=== PATIENT | female | born 1965 | race Asian ===

== ENCOUNTER 2020-05-25 18:50 | Emergency (ER) | payer OTHER ==
[~2020-05-25] VITALS: Ht 167.6 cm; Wt 68.9 kg
[2020-05-25 18:53] VITALS: BP 150/89
[2020-05-25 19:40] LABS: BASOPHILS % (AUTO) 0.1 % (0.0-2.0); EOSINOPHILS # (AUTO) 0.1 K/uL (0-0.4); EOSINOPHILS % (AUTO) 0.8 % (0.0-4.0); HEMATOCRIT 43.8 % (36-48); HEMOGLOBIN 14.6 g/dL (12.0-16.0); LYMPHOCYTES % (AUTO) 7.3 % (20.5-51.1); MEAN CORPUSCULAR HEMOGLOBIN 30 pg (27-31); MEAN CORPUSCULAR HGB CONC 33 g/dL (33-37); MEAN CORPUSCULAR VOLUME 90.6 fL (80-94); MONOCYTES # (AUTO) 0.5 K/uL (0.8-1.0); MONOCYTES % (AUTO) 3.9 % (1.7-9.3); NEUTROPHILS # (AUTO) 12.4 K/uL (1.8-7.7); NEUTROPHILS % (AUTO) 87.9 % (42.2-75.2); PLATELET COUNT (AUTO) 235 K/uL (140-450); RED BLOOD CELL COUNT(AUTO) 4.83 MIL/uL (4.20-5.40); WHITE BLOOD COUNT (AUTO) 14.1 K/uL (4.8-10.8)
[2020-05-25 19:54] LABS: ALBUMIN 4.3 g/dL (3.4-5.0); ANION GAP 17.1 (8-16); CARBON DIOXIDE 26.2 mmol/L (21-32); CREATININE 0.9 mg/dL (0.6-1.3); POTASSIUM 4.3 mmol/L (3.5-5.1); TOTAL BILIRUBIN 0.9 mg/dL (0.0-1.0)
[2020-05-25] MEDS: ONDANSETRON 4 MG ODT PO ONE (20:47)
[2020-05-25] MEDS: HYDROcodone/APAP 5/325 MG 1 TAB TAB PO ONE (20:48)
[2020-05-25 21:19] VITALS: BP 144/96
[2020-05-25 21:39] LABS: APPEARANCE,URINE CLEAR (CLEAR); BILIRUBIN,URINE NEGATIVE (NEGATIVE); BLOOD, URINE NEGATIVE (NEGATIVE); COLOR,URINE YELLOW (YELLOW); LEUKOCYTE ESTERASE ,URINE NEGATIVE (NEGATIVE); NITRITE, URINE NEGATIVE (NEGATIVE); UGLUCOSE NEGATIVE (NEGATIVE)
== END 2020-05-25 22:48 | disposition home or self-care (01) ==
LOC: MED 18:50
DX: R10.11 Right upper quadrant pain (principal)
CPT/HCPCS: 36415; 76705; 80053; 81003; 83690; 85025; 99284; Q0092; Q0162

== ENCOUNTER 2021-12-09 23:45 | Emergency (ER) | payer OTHER ==
[~2021-12-09] VITALS: Ht 172.7 cm; Wt 69.9 kg
[2021-12-09 23:55] VITALS: BP 137/82
--- NOTE | 2021-12-10 00:01 | NUR ---
EKG IN TRIAGE. PT TAKEN TO BED 01.
--- NOTE | 2021-12-10 00:20 | NUR ---
XRAY AND LAB AT BEDSIDE
--- NOTE | 2021-12-10 00:22 | NUR ---
56 Y.O. M BIB DAUGHTER C/O 04/30 CHEST PAIN RAD TO BILAT ARMS [id number]. PT STATES PAIN COMES AND GOES. +SOB DURING PAIN. PT TOOK 1 NITRO SUBLINGUAL 30MINS AGO AND ASPIRIN 81MG WELL WITH NO RELIEF. NITRO BOTTLE HAS AN EXPIRATION DATE OF 2018. PT SPEAKS MANDARIN. PTS BP WAS SLIGHTLY ELEVATED AT 142/81. PTS HR IS 54 AT REST. PT IS STATING AT 98 ON ROOM AIR. NO ACTIVE SOB AT THIS TIME. PT PLACED ON BEDSIDE MONITOR AND HAD A EKG PERFORMED. PT IS RESTING IN BED. DENIES HX, RX AND ALLERGIES
[2021-12-10 00:23] LABS: BASOPHILS # (AUTO) 0.1 K/uL (0.00-0.22); BASOPHILS % (AUTO) 0.9 % (0.0-2.0); EOSINOPHILS # (AUTO) 0.3 K/uL (0-0.4); EOSINOPHILS % (AUTO) 3.2 % (0.0-4.0); HEMATOCRIT 39.2 % (36-52); HEMOGLOBIN 13.2 g/dL (12.0-18.0); LYMPHOCYTES # (AUTO) 3.4 K/uL (2.0-11.5); LYMPHOCYTES % (AUTO) 42.4 % (20.5-51.1); MEAN CORPUSCULAR HEMOGLOBIN 31 pg (27-31); MEAN CORPUSCULAR HGB CONC 34 g/dL (33-37); MEAN CORPUSCULAR VOLUME 90.8 fL (80-94); MONOCYTES # (AUTO) 0.5 K/uL (0.8-1.0); MONOCYTES % (AUTO) 5.9 % (1.7-9.3); NEUTROPHILS # (AUTO) 3.8 K/uL (1.8-7.7); NEUTROPHILS % (AUTO) 47.6 % (42.2-75.2); PLATELET COUNT (AUTO) 228 K/uL (140-450); RED BLOOD CELL COUNT(AUTO) 4.31 MIL/uL (4.20-6.10); RED CELL DISTRIBUTION WIDTH 12.9 % (11.6-13.7)
[2021-12-10 00:37] LABS: ANION GAP 10.4 (8-16); CARBON DIOXIDE 26.6 mmol/L (21-32); LIPASE 77 U/L (73-393)
[2021-12-10 01:03] LABS: ALBUMIN 3.7 g/dL (3.4-5.0); CREATININE 0.8 mg/dL (0.6-1.3); TOTAL BILIRUBIN 0.2 mg/dL (0.0-1.0)
[2021-12-10 02:14] VITALS: BP 122/77
[2021-12-10] MEDS ORDERED: ASPI-1822 PO (02:23)
[2021-12-10] MEDS ORDERED: NITR0.4T1 SL (02:23)
--- NOTE | 2021-12-10 02:31 | NUR ---
d/c with VSS. d/c education given. opportunity to ask questions given and answered. rx of asa and nitroglycerin given.
== END 2021-12-10 02:31 | disposition home or self-care (01) ==
LOC: MED 23:45 → EDSEX 23:45 → MED 12-10 02:31
DX: R07.9 Chest pain, unspecified (principal); R06.02 Shortness of breath
CPT/HCPCS: 36415; 71045; 80053; 83690; 83880; 84484; 85025; 99285; Q0092